=== PATIENT | female | born 1950 | race Native Hawaiian/Other Pacific Islander ===

== ENCOUNTER 2019-11-03 10:53 | Outpatient (CLI) | payer BC | END 2019-11-03 19:13 | disposition home or self-care (01) | LOC: US 10:53 | DX: Z78.0 Asymptomatic menopausal state (principal); E78.2 Mixed hyperlipidemia; I10 Essential (primary) hypertension ==

== ENCOUNTER 2020-07-08 14:21 | Outpatient (CLI) | payer OTHER, BC ==
[2020-07-08 14:38] LABS: PLATELET COUNT 272 K/uL (152-353)
[2020-07-08 15:01] LABS: POTASSIUM 4.2 mmol/L (3.6-5.2)
== END 2020-07-08 20:01 | disposition home or self-care (01) ==
LOC: LAB 14:21
PROVIDERS: Nurse Practitioner Family
DX: E78.2 Mixed hyperlipidemia (principal); I10 Essential (primary) hypertension; G62.89 Other specified polyneuropathies; K21.9 Gastro-esophageal reflux disease without esophagitis; R53.83 Other fatigue; Z79.899 Other long term (current) drug therapy
CPT/HCPCS: 80053; 80061; 83036; 84439; 84443; 84481; 85027

== ENCOUNTER 2021-05-31 15:39 | Outpatient (CLI) | payer OTHER, BC | END 2021-05-31 20:55 | disposition home or self-care (01) | LOC: US 15:39 | PROVIDERS: ATTEND Nurse Practitioner Family | DX: Z86.718 Personal history of other venous thrombosis and embolism (principal); R60.0 Localized edema; M79.605 Pain in left leg ==

== ENCOUNTER 2021-06-16 10:36 | Outpatient (CLI) | payer OTHER, BC | END 2021-06-16 20:12 | disposition home or self-care (01) | LOC: LAB 10:36 | PROVIDERS: ATTEND Nurse Practitioner Family | DX: Z11.52 Encounter for screening for COVID-19 (principal); R10.9 Unspecified abdominal pain; M79.602 Pain in left arm | CPT/HCPCS: 87635; G2023; U0003 ==

== ENCOUNTER 2021-12-13 12:22 | Outpatient (CLI) | payer OTHER, BC | END 2021-12-13 19:03 | disposition home or self-care (01) | LOC: RAD 12:22 | PROVIDERS: ATTEND Nurse Practitioner Family | DX: M25.561 Pain in right knee (principal); M25.562 Pain in left knee ==

== ENCOUNTER 2022-03-21 16:11 | Outpatient (CLI) | payer OTHER, BC | END 2022-03-21 20:16 | disposition home or self-care (01) | LOC: RAD 16:11 | PROVIDERS: ATTEND Orthopaedic Surgery | DX: M54.2 Cervicalgia (principal); M25.511 Pain in right shoulder ==

== ENCOUNTER 2022-09-04 11:14 | Outpatient (CLI) | payer OTHER, BC | END 2022-09-04 19:35 | disposition home or self-care (01) | LOC: RAD 11:14 | PROVIDERS: ATTEND Nurse Practitioner Family | DX: R05.1 Acute cough (principal); R06.02 Shortness of breath ==

== ENCOUNTER 2022-11-06 17:03 | Emergency (ER) | payer OTHER, BC ==
[~2022-11-06] VITALS: Ht 165.1 cm; Wt 117.9 kg
[2022-11-06 17:22] VITALS: BP 169/79; TEMP 98.7
[2022-11-06 18:27] LABS: PLATELET COUNT 181 K/uL (152-353)
== END 2022-11-06 20:00 | disposition home or self-care (01) ==
LOC: ED 17:03
PROVIDERS: Emergency Medicine Emergency Medical Services
DX: J20.9 Acute bronchitis, unspecified (principal); J02.0 Streptococcal pharyngitis; J10.1 Influenza due to other identified influenza virus with other respiratory manifestations; Z20.822 Contact with and (suspected) exposure to COVID-19
CPT/HCPCS: 36415; 84484; 85027; 87502; 87635; 87651; 93005; 94664; 96361; 96365; 96375; 99284; J0696; J2930; U0001

== ENCOUNTER 2023-01-24 16:37 | Emergency (ER) | payer OTHER, BC ==
[~2023-01-24] VITALS: Ht 162.6 cm; Wt 107.0 kg
[2023-01-24 16:40] VITALS: BP 181/91; TEMP 98.8
[2023-01-24 17:35] LABS: PLATELET COUNT 232 K/uL (152-353)
[2023-01-24 17:39] LABS: POTASSIUM 3.8 mmol/L (3.6-5.2)
== END 2023-01-24 19:32 | disposition home or self-care (01) ==
LOC: ED 16:37
PROVIDERS: Emergency Medicine Emergency Medical Services
DX: J18.9 Pneumonia, unspecified organism (principal); J45.998 Other asthma
CPT/HCPCS: 80053; 81002; 84484; 85027; 87040; 87502; 87635; 93005; 94664; 96365; 96366; 96375; 99284; J0696; J2930; U0001

== ENCOUNTER 2023-05-04 15:10 | Outpatient (CLI) | payer OTHER, BC | END 2023-05-04 21:56 | disposition home or self-care (01) | LOC: RAD 15:10 | PROVIDERS: ATTEND Internal Medicine Sleep Medicine | DX: J45.909 Unspecified asthma, uncomplicated (principal) ==